=== PATIENT | female | born 1990 ===

== ENCOUNTER → 2018-07-19 12:44 | Outpatient (CLI) | payer OTHER, SELFPAY ==
[2018-07-19 13:17] LABS: Influenza A and B by PCR Rapid Negative (Negative)
== END ==
PROVIDERS: Visit Provider Physician Assistant
DX: R68.89 Other general symptoms and signs (principal)
CPT/HCPCS: 87400

== ENCOUNTER → 2019-02-10 15:58 | Outpatient (CLI) | payer OTHER, SELFPAY ==
[2019-02-10 17:11] LABS: HCG Quantitative /Beta subunit 11648 mIU/mL
== END ==
PROVIDERS: Visit Provider Obstetrics & Gynecology
DX: O20.0 Threatened abortion (principal); Z32.01 Encounter for pregnancy test, result positive
CPT/HCPCS: 36415; 84702

== ENCOUNTER → 2019-02-13 16:57 | Outpatient (CLI) | payer OTHER, SELFPAY ==
[2019-02-13 18:43] LABS: HCG Quantitative /Beta subunit 24835 mIU/mL
== END ==
PROVIDERS: Visit Provider Obstetrics & Gynecology
DX: O20.0 Threatened abortion (principal); Z32.01 Encounter for pregnancy test, result positive
CPT/HCPCS: 36415; 84702

== ENCOUNTER → 2019-03-02 16:42 | Outpatient (CLI) | payer OTHER, SELFPAY ==
[2019-03-02 17:42] LABS: Appearance Urine UA CLEAR; Bilirubin Urine UA NEGATIVE (NEGATIVE); Color Urine UA YELLOW; Glucose Urine UA NEGATIVE (Negative); Ketones Urine UA NEGATIVE (NEGATIVE); Leukocyte Esterase Urine UA NEGATIVE (NEGATIVE); Nitrite Urine UA NEGATIVE (Negative); Occult Blood Urine UA NEGATIVE (Negative); Protein Urine UA NEGATIVE (Negative); Specific Gravity Urine UA <=1.005 (1.000-1.035); Urobilinogen Urine UA 0.2 E.U./dL (0.2)
[2019-03-02 18:04] LABS: Add Manual Diff / Slide Review NO; Basophils Absolute Auto 0 /uL (0-100); Basophils Percent Auto 0.4 % (0-2); Eosinophils Absolute Auto 100 /uL (0-450); Eosinophils Percent Auto 1.2 % (2-4); Hematocrit 36.2 % (36-46); Hemoglobin 12.8 g/dL (12.0-16.0); Lymphocytes Absolute Auto 2800 /uL (1100-4500); Lymphocytes Percent Auto 30.2 % (25-40); Mean Corpuscular HGB Conc 35.3 % (30-36); Mean Corpuscular Volume 90.6 fL (80-100); Monocytes Absolute Auto 600 /uL (0-900); Monocytes Percent Auto 6.9 % (3-14); Neutrophils Absolute Auto 5800 /uL (1500-7000); Neutrophils Percent Auto 61.3 % (50-75); Platelet Count 263 X10^3/uL (150-400); Red Cell Distribution Width 11.6 % (11.6-14.8); White Blood Cell Count 9.4 X10^3/uL (4.5-11.0)
[2019-03-02 18:05] LABS: pH Urine UA 7.5 (4.5-8.0)
[2019-03-02 20:02] LABS: Hepatitis B Surface Antigen NEGATIVE s/c (NEGATIVE); Rubella Antibody IgG 5.1 IU/mL (>15)
[2019-03-02 20:23] LABS: HIV 1 & 2 Ab/Ag 4th Gen Combo NEGATIVE (NEGATIVE); Hep C Virus Ab w/Reflex Quant NEGATIVE s/c (NEGATIVE)
[2019-03-05 22:23] LABS: RPR Screen Nonreactive (Nonreactive)
[2019-03-07 10:58] LABS: C.trachomatis RNA NOT DETECTED
[2019-03-07 10:59] LABS: N.gonorrhoeae RNA NOT DETECTED
== END ==
PROVIDERS: Visit Provider Obstetrics & Gynecology
DX: Z34.01 Encounter for supervision of normal first pregnancy, first trimester (principal); Z11.3 Encounter for screening for infections with a predominantly sexual mode of transmission
CPT/HCPCS: 36415; 80055; 81003; 86787; 86803; 86850; 86900; 86901; 87086; 87389; 87491; 87591

== ENCOUNTER → 2019-03-17 16:39 | Outpatient (CLI) | payer OTHER, SELFPAY ==
[2019-03-17 16:58] LABS: Specimen Label NATERA
== END ==
PROVIDERS: Visit Provider Obstetrics & Gynecology
DX: Z34.81 Encounter for supervision of other normal pregnancy, first trimester (principal); Z3A.11 11 weeks gestation of pregnancy
CPT/HCPCS: 36415

== ENCOUNTER → 2019-05-03 16:06 | Outpatient (CLI) | payer OTHER, SELFPAY ==
[2019-05-08 16:35] LABS: AFP, Serum 36.6 ng/mL; Calc Gestational Age 17; Est Date Determined by ULTRASOUND; Maternal Weight 141 lbs; Mother Ethnic Origin CAUCASIAN; Number of Fetuses NOT GIVEN; Prev Pregnancies Down Syndrome NOT GIVEN
== END ==
PROVIDERS: Visit Provider Obstetrics & Gynecology
DX: Z34.82 Encounter for supervision of other normal pregnancy, second trimester (principal); Z3A.17 17 weeks gestation of pregnancy
CPT/HCPCS: 36415; 82105

== ENCOUNTER → 2019-05-26 14:03 | Outpatient (CLI) | payer OTHER, SELFPAY ==
--- NOTE | 2019-05-26 14:05 | DI.US.S_ITS ---
PROCEDURE: US OB >= 14 WEEKS FETUS INDICATIONS: ANATOMY OUTSIDE/PRIOR DATING DATA: Last menstrual period (LMP): 12/27/18. LMP-based estimated date of delivery (CRISS): 10/03/19. First dating scan (date and location): 03/02/19. Estimated date of delivery (CRISS) from first dating scan: 10/11/19. TECHNIQUE: Real-time scanning was performed of the fetus, with image documentation and biometric measurements. Endovaginal scanning: No COMPARISON: [facility], , OB >= 14 WEEKS FETUS, 05/03/2019, 15:55. FINDINGS: General: A single living intrauterine gestation is present. Presentation: Transverse. Placenta: Placental position is anterior, without previa. Amniotic fluid index: 21.5 cm, normal range is 5-24 cm. heart rate: 150 beats per minute. Maternal cervical canal: 4.4 cm biometrics: Biparietal diameter: 20 weeks 3 days Head circumference: 20 weeks 4 days Abdominal circumference: 20 weeks 4 days Femur length: 21 weeks 6 days Estimated gestational age from initial scan: 20 weeks 2 days Composite gestational age from present scan: 20 weeks 6 days Estimated weight and percentile: 398 g; 86 percentile Measurement variability for biometric dating: +/- 7 days from 14 weeks to 15 weeks 6 days gestation, +/- 10 days from 16 weeks to 21 weeks 6 days gestation, +/- 2 weeks from 22 weeks to 27 weeks 6 days gestation, +/- 3 weeks for 28 weeks gestation or later. weight reference: 4500 g or EFW >90/95% is considered macrosomia or large for gestational age. EFW <10% is small for gestational age. EFW 5% or less is considered intra-uterine growth restriction. Anatomic survey: Neuro: Ventricles are non-dilated at less than 10 mm. Cisterna magna is normal at 3-11 mm. Cerebellum is normal in size and morphology. Nuchal skin fold: Normal at less than 6 mm between 14-21 weeks gestational age. Face: Nose and lips are normal. Facial profile not well-seen. Spine: No evidence for spina bifida. Heart: 4-chambered heart is present, with normal ventricular outflow tracts. Diaphragm: Diaphragm is intact. Stomach: Left-sided stomach is present. Kidneys: No hydronephrosis. Normal is less than 5 mm in 2nd trimester, less than 7 mm in 3rd trimester. Cord: 3-vessel cord has orthotopic insertion. Bladder: Normal in size. Extremities: All 4 extremities identified. IMPRESSION: 1. Single living IUP redemonstrated and interval growth is upper limits of normal. 2. Facial profile not well-seen; otherwise normal anatomy. Follow up recommended. Dictated by: Gregory Dias [facility] Interpreted: Dexter Montes MD on 05/26/2019 at 16:40 Approved by: Dexter Montes M.D. on 05/26/2019 at 18:08
== END ==
PROVIDERS: Visit Provider Obstetrics & Gynecology
DX: Z34.02 Encounter for supervision of normal first pregnancy, second trimester (principal); Z3A.20 20 weeks gestation of pregnancy
CPT/HCPCS: 76811

== ENCOUNTER → 2019-07-01 09:02 | Outpatient (CLI) | payer OTHER, SELFPAY ==
[2019-07-01 10:49] LABS: Hematocrit 32.3 % (36-46); Hemoglobin 11.5 g/dL (12.0-16.0)
[2019-07-01 11:03] LABS: GTT (PREG) 1 Hour PP 50gm Dose 98 mg/dL (76-139)
== END ==
PROVIDERS: Referring Provider Specialist; Visit Provider Specialist
DX: Z34.82 Encounter for supervision of other normal pregnancy, second trimester (principal)
CPT/HCPCS: 36415; 82950; 85014; 85018

== ENCOUNTER → 2019-09-11 10:36 | Outpatient (CLI) | payer OTHER, SELFPAY ==
[2019-09-12 08:03] LABS: Strep Grp B PCR NEG for Grp B Strep
== END ==
PROVIDERS: Visit Provider Specialist
DX: Z34.03 Encounter for supervision of normal first pregnancy, third trimester (principal)
CPT/HCPCS: 87653

== ENCOUNTER 2019-10-03 12:01 | Inpatient (IN) | payer OTHER, SELFPAY ==
[2019-10-03] MEDS: OXYTOCIN PREMIX 30 UNIT/500 ML PLAST..BAG IV (13:06)
[2019-10-03] MEDS: LACTATED RINGERS 1,000 ML 100 ML IV (13:07)
[2019-10-03 13:09] LABS: Add Manual Diff / Slide Review NO; Basophils Absolute Auto 0 /uL (0-100); Basophils Percent Auto 0.3 % (0-2); Eosinophils Absolute Auto 100 /uL (0-450); Eosinophils Percent Auto 0.5 % (2-4); Hematocrit 31.3 % (36-46); Hemoglobin 10.7 g/dL (12.0-16.0); Lymphocytes Absolute Auto 1900 /uL (1100-4500); Mean Corpuscular HGB Conc 34.2 % (30-36); Mean Corpuscular Hemoglobin 30.6 PG (26-34); Mean Corpuscular Volume 89.5 fL (80-100); Monocytes Absolute Auto 900 /uL (0-900); Monocytes Percent Auto 7.3 % (3-14); Neutrophils Absolute Auto 9600 /uL (1500-7000); Neutrophils Percent Auto 76.9 % (50-75); Platelet Count 279 X10^3/uL (150-400); Red Cell Distribution Width 13.2 % (11.6-14.8); White Blood Cell Count 12.4 X10^3/uL (4.5-11.0)
[2019-10-03 13:54] VITALS: BP 116/84
--- NOTE | 2019-10-03 14:06 | P.HPOB_ITS ---
OB HPI Date/Time Date of admission: 10/03/19 Date Patient Seen: 10/03/19 Time Patient Seen: 14:11 History of Present Condition Chief complaint: OBS : 1 Para: 0 Estimated Date of Delivery: 10/11/19 Estimated Gestational Age (weeks): 38 Narrative: Ana Rausch is a 29 year old female admitted with spontaneous rupture membranes not in active labor History of Present care: good care, initiated at week # (10), number of visits (14) and pounds weight gain (35) Dating criteria: based on 1st trimester US only Ultrasounds: normal mid trimester US Obstetrical complications: none Medical complications: none Preadmission Labs Blood type: O (+) positive -: Antibody screen: negative, GBS status: negative, HBsAG: negative, HIV: negative and RPR/VDLR: negative -: Chlamydia screen: not detected and Gonorrhea screen: not detected -: Rubella: not immune and Varicella: immune HCAB: negative Cell-free DNA: Normal female 1 hr GTT: 98 Evaluation Evaluation Baseline heart rate: 140 Variability: Moderate (11-25) monitor accelerations: Present monitor decelerations: Absent Contraction Frequency (minutes): 5 Uterine Contraction Intensity: Mild Category of Tracing: I Cervical dilation (cm): 2 Cervical effacement (%): 80 station: 0 Laboratory results: Laboratory Tests 10/03/19 12:55 WBC 12.4 H RBC 3.50 L Hgb 10.7 L Hct 31.3 L MCV 89.5 MCH 30.6 MCHC 34.2 RDW 13.2 Plt Count 279 Neut % (Auto) 76.9 H Lymph % (Auto) 15.0 L [place] % (Auto) 7.3 Eos % (Auto) 0.5 L Baso % (Auto) 0.3 Neut # (Auto) 9600 H Lymph # (Auto) 1900 [place] # (Auto) 900 Eos # (Auto) 100 Baso # (Auto) 0 Non-invasive Membranes Rupture Test: positive [facility] Medical History Allergy to ant bite (Acute) Surgical History History of third molar tooth extraction Family History Brother Epilepsy Family/Other Hep C w/o coma, chronic Family/Other Cancer Social History marital status: Smoking Status: Never smoker Meds Home Medications and Allergies Home Medications Medication Instructions Recorded Confirmed Type prenat.vits,cassie,ouq-ryeb-jgyeq 1 tab PO DAILY 03/02/19 10/03/19 History Allergies Allergy/AdvReac Type Severity Reaction Status Date / Time No Known Drug Allergies Allergy Verified 09/25/19 08:48 Review of Systems Review of Systems Narrative: Patient had notices decreased movement and leakage of fluid since 10:00 p.m. last night. She was checked in the office prior that day and had negative fern testing for rupture membranes. She denies headaches, scotomata, epigastric pain. ROS: Yes All systems reviewed with the patient and are negative except as otherwise documented Exam Vital Signs (past 8 hours): Blood pressure 116/84, pulse of 110, temperature 97.6- 10/03/19 13:54 Blood Pressure 116/84 Narrative Exam Narrative: HEENT exam within normal limits. Lungs are clear to auscultation percussion. Heart is regular rate and rhythm no S3-S4 or murmurs. Abdomen is gravid. Fetus is vertex. Extremities without edema and nontender Objective Labs Result Diagrams: 10/03/19 12:55 Labs: Laboratory Results - last 24 hr 10/03/19 12:55 WBC 12.4 H RBC 3.50 L Hgb 10.7 L Hct 31.3 L MCV 89.5 MCH 30.6 MCHC 34.2 RDW 13.2 Plt Count 279 Neut % (Auto) 76.9 H Lymph % (Auto) 15.0 L [place] % (Auto) 7.3 Eos % (Auto) 0.5 L Baso % (Auto) 0.3 Neut # (Auto) 9600 H Lymph # (Auto) 1900 [place] # (Auto) 900 Eos # (Auto) 100 Baso # (Auto) 0 Assessment and Plan Assessment and Plan Assessment and Plan narrative: 38 week gestation with spontaneous rupture membranes not in active labor. Patient will be begun on Pitocin. Time Spent with Patient Total time spent with greater than 50% in coordination of care (as documented) at patient's floor/unit and/or counseling patient:: less than 15 minutes
[2019-10-03 14:35] LABS: COVID19 -Nasal RAPID Negative (Negative)
[2019-10-03] MEDS: FENT 2MCG/ML BUPIV 0.125% EPI 200 MCG/100 ML PLAST..BAG 6 MCG EPIDURAL (20:23)
--- NOTE | 2019-10-03 23:33 | P.PCNOB_ITS ---
Events: Prolonged Rupture of Membrane Labor & Delivery Delivery date: 10/03/19 Delivery augmentation: pitocin Delivery monitor: external FHT and external uterine Route of delivery: L&D Laceration Description: Vaginal - 1st Degree Delivery repair: chromic (3 0) Estimated blood loss (mL): 100 Anesthesia type: Epidural Narrative: Patient arrived in Labor and delivery after prolonged rupture membranes without labor. She started on Pitocin for induction. She received an epidural catheter for pain control. heart tones category 1 to category 2 throughout labor. Patient had a spontaneous vaginal delivery. The viable female was placed on maternal abdomen and after the cord stopped pulsating the cord was clamped, cut, and cord bloods obtained. The placenta delivered spontaneously, intact, with 3 vessels. There were no cervical or vaginal tears. A first-degree perineal tear was repaired with 3 0 chromic suture. Both infant mother doing well. [place] Baby 1: gender: Female Presentation: vertex position: Right Occiput Anterior Placenta delivery description: Spontaneous cord vessel description: 3 Vessels score (1 min): 9 score (5 min): 9 Plan for aftercare: Routine post vaginal delivery care
[2019-10-04] MEDS: IBUPROFEN 600 MG TABLET PO ×4 (01:23→21:01)
[2019-10-04] MEDS: DOCUSATE 100 MG CAPSULE PO (08:51)
[2019-10-04] MEDS: FERROUS GLUCONATE 324 MG TABLET PO (08:51)
[2019-10-04 12:46] LABS: Add Manual Diff / Slide Review NO; Basophils Absolute Auto 0 /uL (0-100); Basophils Percent Auto 0.3 % (0-2); Eosinophils Absolute Auto 0 /uL (0-450); Eosinophils Percent Auto 0.3 % (2-4); Hematocrit 29.6 % (36-46); Hemoglobin 10.3 g/dL (12.0-16.0); Lymphocytes Absolute Auto 1800 /uL (1100-4500); Lymphocytes Percent Auto 14.5 % (25-40); Mean Corpuscular HGB Conc 34.8 % (30-36); Mean Corpuscular Hemoglobin 30.8 PG (26-34); Mean Corpuscular Volume 88.5 fL (80-100); Monocytes Absolute Auto 800 /uL (0-900); Monocytes Percent Auto 6.7 % (3-14); Neutrophils Absolute Auto 9600 /uL (1500-7000); Neutrophils Percent Auto 78.2 % (50-75); Platelet Count 212 X10^3/uL (150-400); Red Blood Cell Count 3.35 X10^6/uL (4.0-5.2); Red Cell Distribution Width 13.2 % (11.6-14.8); White Blood Cell Count 12.3 X10^3/uL (4.5-11.0)
--- NOTE | 2019-10-04 16:39 | PM.OBPN.1 ---
Subjective - OB Subjective Patient comments: no complaints [place] baby status: doing well (Baby is sleepy and needing supplement for low blood sugar) [place] feeding status: exclusively breast feeding Date Patient Seen: 10/04/19 Time Patient Seen: 16:39 Interval history: Less than 24 hours Exam Vital Signs (past 8 hours): Blood pressure 115/75, pulse of 92, temperature 98.4? Narrative Exam Narrative: Abdomen is soft, nontender. Uterus is firm, at U, nontender. Repair is intact. Lochia is mild. Extremities without edema and nontender. Objective Labs Result Diagrams: 10/04/19 12:09 Labs: Laboratory Results - last 24 hr 10/04/19 12:09 WBC 12.3 H RBC 3.35 L Hgb 10.3 L Hct 29.6 L MCV 88.5 MCH 30.8 MCHC 34.8 RDW 13.2 Plt Count 212 Neut % (Auto) 78.2 H Lymph % (Auto) 14.5 L [place] % (Auto) 6.7 Eos % (Auto) 0.3 L Baso % (Auto) 0.3 Neut # (Auto) 9600 H Lymph # (Auto) 1800 [place] # (Auto) 800 Eos # (Auto) 0 Baso # (Auto) 0 Assessment & Plan Assessment and Plan (1) Vaginal delivery: Status: Acute Current Visit: Yes (2) Chronic anemia: Status: Acute Current Visit: Yes Plan day: 1 plan OB: routine care Time Spent With Patient Time: Total time spent is greater than 50% in coordination of care (as documented) at patient's floor/unit and/or counseling patient: Time with patient: less than 15 minutes
[2019-10-05] MEDS: IBUPROFEN 600 MG TABLET PO ×2 (02:57→08:50)
[2019-10-05] MEDS: LANOLIN OINT 7 GM 1 APPLIC TOP (07:59)
[2019-10-05] MEDS: FERROUS GLUCONATE 324 MG TABLET PO (08:00)
[2019-10-05] MEDS: DOCUSATE 100 MG CAPSULE PO (08:00)
[2019-10-05 09:24] VITALS: BP 108/77; PULSE 74; RESP 16; TEMP 36.6
--- NOTE | 2019-10-05 09:40 | P.DS_ITS ---
Discharge Providers Provider Date of admission: 10/03/19 12:01 Discharge Date: 10/05/19 Consults: 10/03/19 12:11 Consult to Anesthesiology Urgent Comment: Consulting Provider: Anesthesiologist Reason for consultation: Epidural Has provider been notified: No 10/04/19 23:30 Consult to Science Consultant Routine Comment: Discharge provider: Theresa Baxter MD Summary Hospital Course Date Patient Seen: 10/05/19 Time Patient Seen: 09:40 Procedures: Pitocin augmentation of labor, epidural catheter, vaginal delivery, repair of first-degree tear Hospital Course: Patient arrived on Labor and delivery after spontaneous rupture membranes but no active labor. She was started on Pitocin and progressed normally. She received an epidural catheter for pain control. She had a spontaneous vaginal delivery with repair of a first-degree laceration. Patient is without difficulty. She is urinating and ambulating well. No headaches, scotomata, epigastric pain. Peripartum Data Infant Delivery Method: Natural Vaginal Laceration description: Vaginal - 1st Degree Procedures: Epidural catheter, spontaneous vaginal delivery, repair of first- degree tear complications: none [place] 1: Gender: Female Disposition of : home Discharge Diagnosis (1) Vaginal delivery: Status: Acute (2) Chronic anemia: Status: Acute Status at Discharge Cognitive/behavioral status at discharge: oriented Functional status at discharge: independent ambulation Overall status at discharge: patient is progressing back to baseline Time Spent with Patient Time attestation: Total time spent providing and/or coordinating discharge services: Time spent: Less than 30 minutes Objective Labs Result Diagrams: 10/04/19 12:09 Labs: Laboratory Results - last 24 hr 10/04/19 12:09 WBC 12.3 H RBC 3.35 L Hgb 10.3 L Hct 29.6 L MCV 88.5 MCH 30.8 MCHC 34.8 RDW 13.2 Plt Count 212 Neut % (Auto) 78.2 H Lymph % (Auto) 14.5 L [place] % (Auto) 6.7 Eos % (Auto) 0.3 L Baso % (Auto) 0.3 Neut # (Auto) 9600 H Lymph # (Auto) 1800 [place] # (Auto) 800 Eos # (Auto) 0 Baso # (Auto) 0 Exam Vital Signs (past 8 hours): - Blood pressure 108/77, pulse 74, temperature 97.8? 10/05/19 09:24 Temperature 97.8 F Pulse Rate 74 Respiratory Rate 16 Blood Pressure 108/77 Narrative Exam Narrative: Abdomen is soft, nontender. Uterus is firm, at U, nontender. M ild lochia. Extremities without edema and nontender. Patient is O positive, she is rubella nonimmune so BC rubella vaccine prior to discharge, she received Tdap in the 3rd trimester. Discharge Plan Discharge Plan Patient Disposition: Home Discharge orders & Medications Prescriptions: New docusate sodium [DOK] 100 mg Capsule 100 mg PO DAILY Qty: 30 RF: 0 ibuprofen 600 mg Tablet 600 mg PO Q6HR PRN (Reason: Pain, Mild (1-3)) Qty: 30 RF: 0 ferrous gluconate 324 mg (38 mg iron) Tablet 324 mg PO DAILY Qty: 30 RF: 0 Continued prenat.vits,cassie,zyc-weyu-utkby Tablet 1 tab PO DAILY RF: 0 Follow up/Referrals: Theresa Baxter MD [Physician] - 1 Month Diet/Activity/Treatments Diet: Regular Activity: Nothing in vagina for 4 weeks Skin/Wound/Dressing Care Report to your healthcare provider any signs of infection, such as:: chills, fever and increased pain
[2019-10-05] MEDS: MEASLES,MUMPS,RUBELLA VACC/PF 0.5 ML VIAL SUBCUT (10:34)
== END 2019-10-05 11:22 | disposition home or self-care (01) | DRG 807 ==
PROVIDERS: Admitting Provider Specialist; Referring Provider Specialist; Visit Provider Specialist
DX: O42.113 Preterm premature rupture of membranes, onset of labor more than 24 hours following rupture, third trimester (principal); Z37.0 Single live birth; Z3A.38 38 weeks gestation of pregnancy; O70.0 First degree perineal laceration during delivery; D64.9 Anemia, unspecified; O99.02 Anemia complicating childbirth
CPT/HCPCS: 01967; 59050; 59400; 84112; 85025; 86850; 86900; 86901; 87635; G0379; J2590

== ENCOUNTER → 2020-05-22 12:41 | Outpatient (CLI) | payer OTHER, SELFPAY ==
[2020-05-22 13:37] LABS: COVID19 -Nasal RAPID POSITIVE (Negative)
== END ==
PROVIDERS: Visit Provider Nurse Practitioner
DX: U07.1 COVID-19 (principal)
CPT/HCPCS: 87635

== ENCOUNTER → 2020-11-18 17:26 | Outpatient (CLI) | payer OTHER, SELFPAY ==
[2020-11-18 19:03] LABS: HCG Quantitative /Beta subunit 26824 mIU/mL
== END ==
PROVIDERS: Referring Provider Specialist; Visit Provider Specialist
DX: Z34.81 Encounter for supervision of other normal pregnancy, first trimester (principal)
CPT/HCPCS: 36415; 84702

== ENCOUNTER → 2020-11-20 17:34 | Outpatient (CLI) | payer OTHER, SELFPAY ==
[2020-11-20 19:13] LABS: HCG Quantitative /Beta subunit 41460 mIU/mL
== END ==
PROVIDERS: Referring Provider Specialist; Visit Provider Specialist
DX: Z34.81 Encounter for supervision of other normal pregnancy, first trimester (principal)
CPT/HCPCS: 36415; 84702

== ENCOUNTER → 2020-11-22 17:13 | Outpatient (CLI) | payer OTHER, SELFPAY ==
[2020-11-22 20:13] LABS: Urine N gonorrhoeae NOT DETECTED
[2020-11-22 20:34] LABS: Urine Chlamydia NOT DETECTED
== END ==
PROVIDERS: Visit Provider Specialist
DX: Z34.81 Encounter for supervision of other normal pregnancy, first trimester (principal); Z3A.01 Less than 8 weeks gestation of pregnancy
CPT/HCPCS: 87491; 87591

== ENCOUNTER → 2020-11-26 17:13 | Outpatient (CLI) | payer OTHER, SELFPAY ==
[2020-11-26 18:48] LABS: Add Manual Diff / Slide Review NO; Basophils Absolute Auto 0 /uL (0-100); Basophils Percent Auto 0.2 % (0-2); Eosinophils Absolute Auto 100 /uL (0-450); Eosinophils Percent Auto 1.5 % (2-4); Hematocrit 34.4 % (36-46); Hemoglobin 12.1 g/dL (12.0-16.0); Lymphocytes Absolute Auto 2800 /uL (1100-4500); Mean Corpuscular HGB Conc 35.3 % (30-36); Mean Corpuscular Hemoglobin 32.4 PG (26-34); Monocytes Absolute Auto 500 /uL (0-900); Monocytes Percent Auto 6.4 % (3-14); Neutrophils Absolute Auto 4500 /uL (1500-7000); Neutrophils Percent Auto 56.9 % (50-75); Platelet Count 232 X10^3/uL (150-400); Red Blood Cell Count 3.74 X10^6/uL (4.0-5.2); Red Cell Distribution Width 11.9 % (11.6-14.8); White Blood Cell Count 7.9 X10^3/uL (4.5-11.0)
[2020-11-26 19:49] LABS: Appearance Urine UA CLEAR; Bilirubin Urine UA NEGATIVE (NEGATIVE); Color Urine UA YELLOW; Glucose Urine UA NEGATIVE (Negative); Ketones Urine UA NEGATIVE (NEGATIVE); Leukocyte Esterase Urine UA NEGATIVE (NEGATIVE); Nitrite Urine UA NEGATIVE (Negative); Occult Blood Urine UA NEGATIVE (Negative); Protein Urine UA NEGATIVE (Negative); Specific Gravity Urine UA <=1.005 (1.000-1.035); Urobilinogen Urine UA 0.2 E.U./dL (0.2)
[2020-11-26 19:52] LABS: pH Urine UA 6.5 (4.5-8.0)
[2020-11-27 07:46] LABS: RPR Screen Non Reactive (Non Reactive)
[2020-11-27 08:36] LABS: Varicella IgG Antibody 468 index (Immune >165)
[2020-11-28 17:02] LABS: Hepatitis B Surface Antigen NEGATIVE s/c (NEGATIVE); Rubella Antibody IgG 5.7 IU/mL (>15)
[2020-11-28 17:16] LABS: HIV 1 & 2 Ab/Ag 4th Gen Combo NEGATIVE (NEGATIVE); Hep C Virus Ab w/Reflex Quant NEGATIVE s/c (NEGATIVE)
== END ==
PROVIDERS: Referring Provider Specialist; Visit Provider Specialist
DX: Z34.81 Encounter for supervision of other normal pregnancy, first trimester (principal)
CPT/HCPCS: 36415; 80055; 81003; 86787; 86803; 86850; 86900; 86901; 87086; 87389

== ENCOUNTER → 2020-12-23 16:16 | Outpatient (CLI) | payer OTHER, SELFPAY | PROVIDERS: Referring Provider Specialist; Visit Provider Specialist | DX: Z34.90 Encounter for supervision of normal pregnancy, unspecified, unspecified trimester (principal) | CPT/HCPCS: 36415 ==

== ENCOUNTER → 2021-01-02 11:34 | Outpatient (CLI) | payer OTHER, SELFPAY ==
[2021-01-02 12:08] LABS: COVID19 -Nasal RAPID Negative (Negative)
== END ==
PROVIDERS: Visit Provider Specialist
DX: Z01.812 Encounter for preprocedural laboratory examination (principal); Z20.822 Contact with and (suspected) exposure to COVID-19
CPT/HCPCS: 87635

== ENCOUNTER 2021-01-03 08:23 | Day surgery (SDC) | payer OTHER, SELFPAY ==
[2021-01-01 08:25] VITALS: BMI 22.2
[2021-01-03] VITALS (11 sets, daily range): BP systolic 83–115; BP diastolic 52–81; PULSE 54–98; RESP 10–96; TEMP 36.1–37.2; O2SAT 14–100; BMI 22.2
--- NOTE | 2021-01-03 | PATH_ITS ---
[facility] Accession Number: [id number] . 01 Material submitted: . product of conception - PRODUCTS OF CONCEPTION . 02 Diagnosis: Products of Conception: Products of conception identified. [facility] 01/07/2021 0927 Local . 02 Electronically signed: . Елена Borges MD, Pathologist NPI- [id number] . 01 Gross description: . The specimen is received in formalin, labeled products of conception, and consists of multiple childs fragments of soft tissue measuring 5.5 x 4.0 x 1.0 cm in aggregate. Chorionic villi are identified. No parts are identified. Application Helper sections are submitted in cassettes A1-A2. ([id number]) /[facility] 01/04/2021 1618 Local . 02 Pathologist provided ICD-10: O03.4 . 02 CPT . 381615 Performed at: 01 [facility] [address] [id number] MD Osman Rondon MD Phone: [phone] Performed at: 02 [facility] [address] [place], [place] [id number] MD Miladis Guzman MD Phone: [phone]
[2021-01-03] MEDS: LACTATED RINGERS 1,000 ML 100 ML IV ×2 (08:35→10:14)
--- NOTE | 2021-01-03 08:54 | PM.PREOP ---
Pre-operative Note COVID-19 COVID-19 status: Negative Result date/Date tested (Pos, Neg/Pending): 01/02/21 Interval Note History & Physical reviewed/Exam performed by Physician: Yes Changes to H&P: No
--- NOTE | 2021-01-03 09:44 | SUR.OPER ---
Lithotomy on padded OR bed, head on pillow, arms secured on padded arm boards at <90 degrees abduction. Legs secured in padded yellow fins stirrups.
--- NOTE | 2021-01-03 10:00 | PM.OP.1 ---
Operative Date/Time/Diagnoses Date of procedure: 01/03/21 Time of procedure: 10:00 Pre-op diagnosis: Incomplete AB Post-op diagnosis: same Procedure & Clinicians Procedure: Section D&C Same procedure as scheduled: Yes Indications: Incomplete miscarriage Surgeon: Theresa Baxter Click Yes if Unassisted: Yes Anesthesia Type: General Operative Notes Findings: Moderate amount of retained products of conception Closure Type: not applicable Specimen(s): other (Uterine contents) Estimated Blood Loss (mL): 100 Blood products transfused: none Procedure in detail: Patient was taken to the operating room where she underwent general anesthesia. She was placed in low Yellofin stirrups and prepped and draped in the usual sterile fashion. Warming was with blankets. Pulsatile stockings in place and functional. No antibiotics were indicated. A check system was reviewed with the staff in the room prior to beginning of the case. A single-tooth tenaculum placed on the anterior lip of the cervix and the cervix was easily dilated to a #8 Hegar dilator. The 8 suction curette was placed in the uterus to the fundus and tissue removed. The uterus was scraped with a uterine curette and the suction curette replaced. This was repeated several times until all of the tissue was removed. The tissue was sent to pathology. Patient went to recovery room in stable condition. Counts of instruments and sponges were correct. Complications: none Post-operative Condition: stable Disposition: same day surgery Plan for aftercare: Home when awake and stable follow-up in 2 weeks
--- NOTE | 2021-01-03 10:04 | SUR.PHASEI ---
Received to PACU after general anesthesia. Pt sonorous requiring jaw thrust. 90mm oral airway inserted without difficulty. Report received from Dr Obrien and MODE Ruff.
--- NOTE | 2021-01-03 10:20 | SUR.PHASEI ---
1007 - Oral airway. No further airway support required.
[2021-01-03] MEDS: ACETAMINOPHEN 325 MG TABLET 650 MG PO (11:20)
--- NOTE | 2021-01-03 11:39 | SUR.PHASEII ---
Discharge instructions given to pt. Pt states she understands discharge instructions. Pt denies any complaints. Pt denies dizzieness and her pad is dry upon discharge.
== END 2021-01-03 11:40 | disposition home or self-care (01) ==
PROVIDERS: Referring Provider Specialist; Visit Provider Specialist
PROC: (CPT 58120; principal; 2021-01-03 09:15)
DX: O03.4 Incomplete spontaneous abortion without complication (principal); Z3A.11 11 weeks gestation of pregnancy; Z86.16 Personal history of COVID-19
CPT/HCPCS: 59812; J1100; J1885; J2250; J2405; J2704; J3010

== ENCOUNTER → 2021-01-18 11:01 | Outpatient (CLI) | payer OTHER, SELFPAY ==
[2021-01-18 11:38] LABS: COVID19 -Nasal RAPID Negative (Negative)
== END ==
PROVIDERS: Visit Provider Nurse Practitioner
DX: R09.81 Nasal congestion (principal); R43.0 Anosmia; Z20.822 Contact with and (suspected) exposure to COVID-19
CPT/HCPCS: 87635

== ENCOUNTER 2024-11-13 08:28 | Emergency (ER) | payer OTHER, SELFPAY ==
[2024-11-13] VITALS (11 sets, daily range): BP systolic 94–127; BP diastolic 67–74; PULSE 67–82; RESP 13–35; TEMP 37.2; O2SAT 97–100; BMI 23.1
--- NOTE | 2024-11-13 09:09 | DI.US.S_ITS ---
PROCEDURE: US OB >= 14 WEEKS FETUS INDICATIONS: cramping with OUTSIDE/PRIOR DATING DATA: Last menstrual period (LMP): 09/25/2024. LMP-based estimated date of delivery (CRISS): 07/02/2025. First dating scan (date and location): Today. Estimated date of delivery (CRISS) from first dating scan: 07/07/2025. TECHNIQUE: Real-time scanning was performed of the fetus, with image documentation and biometric measurements. COMPARISON: [facility], US, US OB >= 14 WEEKS FETUS, 07/21/2019, 8:31. FINDINGS: [place]-rump length is 0.6 cm. Ultrasound age is 6 weeks and 2 days. Left ovarian corpus luteum cyst is present. This measures 2.5 cm. yolk sac is visualized. IMPRESSION: Living intrauterine gestation at an ultrasound age of 6 weeks and 2 days, which is consistent with the reported LMP. Dictated by: Davidson Frances M.D. on 11/13/2024 at 10:11 Approved by: Davidson Frances M.D. on 11/13/2024 at 10:12
[2024-11-13 09:30] LABS: Add Manual Diff / Slide Review NO; Basophils Absolute Auto 0 /uL (0-100); Basophils Percent Auto 0.6 % (0-2); Eosinophils Absolute Auto 100 /uL (0-450); Eosinophils Percent Auto 1.2 % (2-4); Hemoglobin 13.3 g/dL (12.0-16.0); Lymphocytes Absolute Auto 2100 /uL (1100-4500); Lymphocytes Percent Auto 28.3 % (25-40); Mean Corpuscular Hemoglobin 32.5 PG (26-34); Mean Corpuscular Volume 92.7 fL (80-100); Monocytes Absolute Auto 500 /uL (0-900); Monocytes Percent Auto 6.5 % (3-14); Neutrophils Absolute Auto 4600 /uL (1500-7000); Neutrophils Percent Auto 63.4 % (50-75); Platelet Count 236 X10^3/uL (150-400); Red Cell Distribution Width 11.7 % (11.6-14.8); White Blood Cell Count 7.2 X10^3/uL (4.5-11.0)
[2024-11-13 09:43] LABS: Alanine Aminotransferase 27 IU/L (<35); Albumin 4.5 g/dL (3.5-5.0); Albumin Globulin Ratio 1.3 (1.0-2.8); Alkaline Phosphatase 55 U/L (38-126); Aspartate Aminotransferase 32 IU/L (14-36); BUN Creatinine Ratio 11.3 (6-22); Bilirubin Total 0.4 mg/dL (0.2-1.3); Blood Urea Nitrogen 7 mg/dL (7-17); Calcium 9.4 mg/dL (8.4-10.2); Carbon Dioxide 24 mmol/L (22-32); Chloride 104 mmol/L (98-107); Estimated Glomerular Filt Rate > 60 mL/min (>60); Globulin 3.6 g/dL (1.7-4.1); Glucose 95 mg/dL (70-99); HEMOLYSIS < 15 (0-50); Potassium 3.9 mmol/L (3.4-5.1); Sodium 136 mmol/L (137-145); Total Protein 8.1 g/dL (6.3-8.2)
[2024-11-13 10:24] LABS: HCG Quantitative /Beta subunit 44726 mIU/mL
--- NOTE | 2024-11-13 12:20 | ED.PREGNANCY ---
HPI - General Chief complaint: Abdominal Pain Stated complaint: 7 weeks , possible ectopic, back pain Time Seen by Provider: 11/13/24 11:45 Source: patient, RN notes reviewed and old records reviewed Mode of arrival: Ambulatory Limitations: no limitations History of Present Illness HPI Narrative: 34-year-old female A2 who presents approximately 7 weeks with cramping particularly on the left side left lower and flank. Patient states she has been having an on and off for several weeks but has been a little bit more progressive and painful. She has been in touch with her OBGYN in [place] where she lives. They recommended she come to be evaluated. She was not had any vaginal bleeding or discharge. She states she was without any pain at this time. No fevers. No other chest pain shortness of breath no other GI or urinary symptoms reported. Patient states she was currently on prenatals and progesterone suppository. States no other daily medications. Denies any other drug allergies. States her to prior pregnancies that went to completion were both vaginal delivery. No tobacco, no alcohol, no recreational drugs. Patient returns to [place] on . Related Data Home Medications ?Medication ?Instructions ?Recorded ?Confirmed prenat.vits,cassie,jxs-hdfz-rwvgc 1 tab PO DAILY 03/02/19 01/18/21 Previous Rx's ?Medication ?Instructions ?Recorded progesterone micronized 100 mg See Rx Instructions .Route 08/05/21 capsule .COMPLEX #60 caps Allergies Allergy/AdvReac Type Severity Reaction Status Date / Time fire ant Allergy Severe Anaphylaxis Verified 01/18/21 11:11 : I could not breathe Review of Systems Review of Systems ROS Unobtainable: All systems reviewed & are unremarkable except as noted in HPI and below Exam Narrative Exam Narrative: GENERAL: Alert and oriented x three, mild distress HEENT: Head normocephalic, atraumatic, EOMI, pupils reactive, face symmetric, moist mucous membranes NECK: Supple, full range of motion CARDIOVASCULAR: Regular rate and rhythm without murmurs, rubs or gallops. RESPIRATORY: Breath sounds equal bilaterally, no wheezes rales or rhonchi. ABDOMEN: Soft, nontender. Nondistended. Normoactive bowel sounds all 4 quadrants. No guarding or rebound, rigidity, no mass : No CVA tenderness EXTREMITIES: Normal range of motion, no clubbing or edema. Neurovascularly intact NEUROLOGICAL: Cranial nerves II through XII grossly intact. Moving all extremities SKIN: Warm, dry, no petechiae, no rashes or lesions. Initial Vital Signs Initial Vital Signs: Vital Signs Temperature 98.9 F 11/13/24 08:59 Pulse Rate 70 11/13/24 08:59 Respiratory Rate 18 11/13/24 08:59 Blood Pressure 127/70 11/13/24 08:59 Pulse Oximetry 97 11/13/24 08:59 Oxygen Delivery Method Room Air 11/13/24 08:59 Course Orders Ordered: ED Orders 11/13/24 09:09 US OB <= 14 weeks fetus Stat 11/13/24 09:22 Complete Blood Count AUTO DIFF Stat Comprehensive Metabolic Panel Stat HCG Quantitative /Beta subunit Stat 11/13/24 09:53 ABO RH Type Stat Vital Signs Vital signs: Vital Signs - 8 hr 11/13/24 12:00 11/13/24 12:02 11/13/24 12:02 Pulse Rate 78 71 Respiratory Rate 35 H 27 H Blood Pressure 99/67 Pulse Oximetry 98 98 11/13/24 12:30 Pulse Rate 70 Respiratory Rate 22 Blood Pressure Pulse Oximetry 99 MDM - OB/Uterine Contractions Lab Data 11/13/24 09:22 11/13/24 09:22 Labs: Lab Results 11/13/24 11/13/24 Range/Units 09:22 09:53 WBC 7.2 (4.5-11.0) X10^3/uL RBC 4.10 (4.0-5.2) X10^6/uL Hgb 13.3 (12.0-16.0) g/dL Hct 38.0 (36-46) % MCV 92.7 (80-100) fL MCH 32.5 (26-34) PG MCHC 35.0 (30-36) % RDW 11.7 (11.6-14.8) % Plt Count 236 (150-400) X10^3/uL Neut % (Auto) 63.4 (50-75) % Lymph % (Auto) 28.3 (25-40) % [place] % (Auto) 6.5 (3-14) % Eos % (Auto) 1.2 L (2-4) % Baso % (Auto) 0.6 (0-2) % Neut # (Auto) 4600 (7284-2034) /uL Lymph # (Auto) 2100 (1407-8080) /uL [place] # (Auto) 500 (0-900) /uL Eos # (Auto) 100 (0-450) /uL Baso # (Auto) 0 (0-100) /uL Sodium 136 L (137-145) mmol/L Potassium 3.9 (3.4-5.1) mmol/L Chloride 104 (98-107) mmol/L Carbon Dioxide 24 (22-32) mmol/L BUN 7 (7-17) mg/dL Creatinine 0.62 (0.52-1.04) mg/dL Estimated GFR > 60 (>60) mL/min BUN/Creatinine Ratio 11.3 (6-22) Glucose 95 (70-99) mg/dL Calcium 9.4 (8.4-10.2) mg/dL Total Bilirubin 0.4 (0.2-1.3) mg/dL AST 32 (14-36) IU/L ALT 27 (<35) IU/L Alkaline Phosphatase 55 (38-126) U/L Total Protein 8.1 (6.3-8.2) g/dL Albumin 4.5 (3.5-5.0) g/dL Globulin 3.6 (1.7-4.1) g/dL Albumin/Globulin Ratio 1.3 (1.0-2.8) HCG, Quant 60569 mIU/mL Blood Type O Positive Urine Dip Bedside Urine Glucose Negative Bedside Urine Bilirubin - Negative Bedside Urine Ketone - Negative Urine Specific [place] 1.005 Bedside Urine Occult Blood - Negative Bedside Urine pH 7.5 Bedside Urine Protein - Negative Bedside Urine Urobilinogen - Negative Bedside Urine Nitrite - Negative Bedside Urine Leukocytes - Negative Esterase [facility] Narrative Medical decision making narrative: 34-year-old female A2, with 2 prior vaginal deliveries. last menstrual period reported 09/25/2024. Labs show white count of 7.2 hemoglobin of 13 platelets of 236. Patient was normal chemistries except for a sodium 136 normal BUN creatinine LFTs are negative patient's hCG is 44,726. Point of care urine is negative. Patient was O positive. ultrasound shows crown-rump length of 0.6 cm ultrasound age is 6 weeks and 2 days left ovarian corpus luteal cyst present measures 2.5 cm yolk sac is visualized consistent with LMP reported. Estimated date of delivery is 07/07/2025. Discussed with patient would have her follow up with her OBGYN she returns on , continue with pelvic rest and her medications from her physician. Discharge Plan Departure Patient Disposition: Home Clinical Impression: Abdominal pain during Instructions: DI for Abdominal Pain -- Early Activity Restrictions/Additional Instructions: Follow up with your your it technical architect. Copy of your ultrasound from today is included. HCG quantitative was 44,726 mIU/mL. You can take acetaminophen up to a 1000 mg every 6 hours as needed for pain. Please return if you have new or worsening symptoms, vaginal bleeding, going through more in the pattern an hour, lightheadedness or passing out or other new or concerning change. Prescriptions: No Action progesterone micronized 100 mg capsule See Rx Instructions .ROUTE .COMPLEX Qty: 60 0RF Dose Instruction: TAKE 1 TABLET BY MOUTH TWICE DAILY FOR ABNORMAL MENSTRUAL CYCLE. Rx Instructions: TAKE 1 TABLET BY MOUTH TWICE DAILY FOR ABNORMAL MENSTRUAL CYCLE. prenat.vits,cassie,izq-bbfb-ultst Tablet 1 tab PO DAILY Referrals: [facility]co [Primary Care Provider, Family Practice] Stand Alone Forms: Patient Portal/API
== END 2024-11-13 12:55 | disposition home or self-care (01) ==
PROVIDERS: Emergency Provider Emergency Medicine
DX: O26.891 Other specified pregnancy related conditions, first trimester (principal); R10.32 Left lower quadrant pain; Z3A.01 Less than 8 weeks gestation of pregnancy
CPT/HCPCS: 76801; 76811; 76817; 80053; 81003; 84702; 85025; 86900; 86901; 99282; 99284